=== PATIENT | female | born 1950 | race Caucasian/White ===

== ENCOUNTER 2018-07-06 10:53 | Outpatient (CLI) | payer MEDICARE, OTHER | END 2018-07-06 10:54 | disposition home or self-care (01) | LOC: RT 10:53 | PROVIDERS: ATTEND Orthopaedic Surgery | DX: Z01.810 Encounter for preprocedural cardiovascular examination (principal); R68.89 Other general symptoms and signs | CPT/HCPCS: 93005 ==

== ENCOUNTER 2022-07-10 13:02 | Emergency (ER) | payer MEDICARE, OTHER ==
[2022-07-10 13:11] VITALS: BP 157/89
--- NOTE | 2022-07-10 13:44 | XRAY Report ---
PROCEDURE: Wrist 4 View RT INDICATIONS: Trauma TECHNIQUE: 4 views of the wrist were acquired. COMPARISON: None FINDINGS: Bones: Acute mildly displaced comminuted distal radius fracture. Fracture planes involving the radioc arpal joint. No substantial angulation of the distal fracture fragments. Scaphoid view: No definite acute scaphoid fracture visualized. Soft tissues: No suspicious soft tissue calcifications. IMPRESSION: Acute comminuted distal radius fracture. Reviewed by: Balwinder Briones MD on 07/10/2022 1:43 PM PDT Approved by: Balwinder Briones MD on 07/10/2022 1:43 PM PDT Station ID: [id number]
--- NOTE | 2022-07-10 16:53 | ED Physician Documentation ---
PD HPI UPPER EXT INJURY - Stated complaint Stated Complaint: R WRIST INJ - Chief complaint Chief Complaint: Trauma Ext - History obtained from History obtained from: Patient - History of Present Illness Location: Right, Wrist Type of injury: Fall Where injury occurred: Home Timing - onset: Yesterday Timing - duration: Days (1) Timing - details: Abrupt onset, Still present Improved by: Rest, Ice, Immobilization Worsened by: Moving, Palpating Associated symptoms: Swelling. No: Weakness, Numbness Contributing factors: No: Anticoagulated, Prior ortho surgery Similar symptoms before: Diagnosis (ankle fracture) Recently seen: Not recently seen - Additonal information Additional information: Sabrina Rainey is a 72-year-old female with a history of hypertension who was walking in her yard when she tripped over a piece of metal falling forward onto her outstretched right hand. She did not otherwise injure herself in the fall and complains of pain and swelling to the right wrist that has lasted overnight. She was able to get comfortable to be able to sleep by holding her hand over her chest. She has broken her ankle previously and this took about 6 weeks to heal Review of Systems Constitutional: denies: Fever Ears: denies: Ear pain Nose: denies: Congestion Throat: denies: Sore throat Respiratory: denies: Cough GI: denies: Vomiting, Diarrhea : denies: Dysuria, Frequency Skin: denies: Rash Musculoskeletal: reports: Extremity pain, Joint pain, Joint swelling. denies: Neck pain, Back pain Neurologic: denies: Generalized weakness, Focal weakness, Numbness, Difficulty speaking PD PAST MEDICAL HISTORY - Allergies Allergies/Adverse Reactions: Allergies Allergy/AdvReac Type Severity Reaction Status Date / Time No Known Drug Allergies Allergy Verified 07/10/22 13:11 PD ED PE NORMAL - Vitals Vital signs reviewed: Yes (hypertensive ) - General General: Alert and oriented X 3, No acute distress, Well developed/nourished - HEENT HEENT: Atraumatic, PERRL, EOMI - Respiratory Respiratory: No respiratory distress, Other (no chest wall tenderness) - Back Back: No CVA TTP, No spinal TTP - Derm Derm: Normal color, Warm and dry, No rash - Extremities Extremities: Other (swelling to the right wrist concerning for distal radilus fracture. Decreased ROM and pain. distal n/v intact. no injury to shoulders/elbows back or LE. 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, No motor deficit, No sensory deficit, Normal speech Eye Opening: Spontaneous Motor: Obeys Commands Verbal: Oriented GCS Score: 15 - Psych Psych: Normal mood, Normal affect Results - Vitals Vitals: Vital Signs - 24 hr 07/10/22 13:08 Temperature 36.6 C Heart Rate 64 Respiratory 16 Rate Blood Pressure 157/89 H O2 Saturation 98 - Rads (name of study) right wrist Radiology: Prelim report reviewed (Impression: Acute comminuted distal radius fracture.), EMP read indepedently, See rad report Procedures - Splint (location) right wrist Splint applied by: Tech Type of splint: Fiberglass, Volar cock up Other: Patient tolerated well, No complications, Neurovascular intact, Good alignment, Sling provided PD MEDICAL DECISION MAKING - ED course Complexity details: reviewed old records, reviewed results, re-evaluated patient, considered differential, d/w patient ED course: 72-year-old female with a FOOSH has a comminuted distal radius fracture without angulation and she is placed into a volar wrist splint and we will have her follow-up with orthopedics in the coming week for casting. Departure - Departure Disposition: 01 Home, Self Care Clinical Impression: Distal radius fracture, right Qualifiers: Encounter type: initial encounter Fracture type: closed Fracture morphology: unspecified fracture morphology Qualified Code(s): S52.501A - Unspecified fracture of the lower end of right radius, initial encounter for closed fracture Condition: Stable Instructions: ED Fx Forearm Radius Ulna No Redu Requ Follow-Up: Migdalia Morales MD [Primary Care Provider] - Wagner Spears MD [Provider Admit Priv/Credential] - Comments: Tati, today it looks like you broke your wrist and we have placed you into a splint. Call the orthopedic office this week for a follow up visit for casting. Wear the splint until your followup with orthopedics. Expect to have a cast in place for about 6 weeks. With this fracture we expect normal healing with a good outcome.
== END 2022-07-10 17:33 | disposition home or self-care (01) ==
LOC: ED 13:02
DX: S52.501A Unspecified fracture of the lower end of right radius, initial encounter for closed fracture (principal); W01.0XXA Fall on same level from slipping, tripping and stumbling without subsequent striking against object, initial encounter; Y93.01 Activity, walking, marching and hiking; Y92.007 Garden or yard of unspecified non-institutional (private) residence as the place of occurrence of the external cause; I10 Essential (primary) hypertension
CPT/HCPCS: 29125; 99283; 99284

== ENCOUNTER 2022-07-29 08:00 | Outpatient (CLI) | payer MEDICARE, OTHER ==
--- NOTE | 2022-07-29 13:48 | XRAY Report ---
PROCEDURE: Wrist 3 View RT INDICATIONS: RIGHT WRIST FRACTURE TECHNIQUE: 3 views of the wrist were acquired. COMPARISON: 07/10/2022 FINDINGS: Bones: Healing impacted and comminuted distal radius fracture with extension through the articular fink rface. Slight central subluxation of the distal fracture fragment and the radiocarpal articulation on the lateral view. Distal radioulnar joint is grossly intact. Soft tissues: No suspicious soft tissue calcifications. IMPRESSION: 1. Slight volar subluxation of the distal fracture fragment and radiocarpal articulation compared to the radial diaphysis seen best on the lateral view. 2. No significant bridging callus seen. Reviewed by: Trinidad Myers MD on 07/29/2022 1:46 PM PDT Approved by: Trinidad Myers MD on 07/29/2022 1:46 PM PDT Station ID: [id number]
== END 2022-07-29 23:59 | disposition home or self-care (01) ==
LOC: DI.WOS 08:00
PROVIDERS: ATTEND Orthopaedic Surgery
DX: S52.501D Unspecified fracture of the lower end of right radius, subsequent encounter for closed fracture with routine healing (principal)

== ENCOUNTER 2022-08-20 14:28 | Outpatient (CLI) | payer MEDICARE, OTHER ==
--- NOTE | 2022-08-20 16:04 | XRAY Report ---
PROCEDURE: Wrist 3 View RT INDICATIONS: RIGHT WRIST FRACTURE TECHNIQUE: 3 views of the wrist were acquired. COMPARISON: Right wrist radiographs 07/29/2022 and 07/10/2022 FINDINGS: Bones: Comminuted intra-articular fracture of the distal radius is redemonstrated. The alignment does not appear significantly changed when compared to the exam from 07/28/2022, although mildly increase d radial and volar angulation is again noted when compared to the exam from 07/10/2022. Osseous resor ption along the fracture line is most likely related to mild progressive healing changes. Soft tissues: Soft tissue edema is seen surrounding the wrist. IMPRESSION: Comminuted intra-articular fracture of the distal radius with mild angulation does not appear signifi cant changed in alignment when compared to the radiographs from 07/29/2022, with probable mild progre ssive healing changes. Reviewed by: Balwinder Jones MD on 08/20/2022 4:03 PM PST Approved by: Balwinder Jones MD on 08/20/2022 4:03 PM PST Station ID: [id number]
== END 2022-08-20 14:29 | disposition home or self-care (01) ==
LOC: DI.WOS 14:28
PROVIDERS: ATTEND Orthopaedic Surgery
DX: S52.531D Colles' fracture of right radius, subsequent encounter for closed fracture with routine healing (principal)

== ENCOUNTER 2022-10-31 08:00 | Outpatient (CLI) | payer MEDICARE ==
--- NOTE | 2022-10-31 12:22 | XRAY Report ---
PROCEDURE: Wrist 3 View RT INDICATIONS: RIGHT WRIST FRACTURE TECHNIQUE: 3 views of the wrist were acquired. COMPARISON: X-ray rest 08/20/2022 FINDINGS: Bones: There is a persistent appearance of impacted, comminuted, intra-articular and ventrally displa nadiya radial metaphyseal fracture. Alignment is stable compared to prior exam. Fracture lucencies are l ess visible although incompletely resolved. Soft tissues: No suspicious soft tissue calcifications. IMPRESSION: Comminuted intra-articular radial metaphyseal fracture with stable alignment and mild interval healin g. Reviewed by: Adrianne Giraldo MD on 10/31/2022 12:21 PM PST Approved by: Adrianne Giraldo MD on 10/31/2022 12:21 PM PST Station ID: [id number]
== END 2022-10-31 15:55 | disposition home or self-care (01) ==
LOC: DI.WOS 08:00
PROVIDERS: ATTEND Orthopaedic Surgery
DX: S52.531D Colles' fracture of right radius, subsequent encounter for closed fracture with routine healing (principal)

== ENCOUNTER 2024-01-20 12:15 | Outpatient (CLI) | payer MEDICARE ==
--- NOTE | 2024-01-27 10:13 | Mammography Report ---
BILATERAL DIGITAL SCREENING MAMMOGRAM 3D/2D: 01/20/2024 CLINICAL: Routine screening. Comparison is made to exams dated: 11/29/2021 mammogram, 11/20/2018 mammogram, 09/08/2017 mammogram, mammogram, and 05/09/2014 mammogram - [facility]- [place]. There are scattered areas of fibroglandular density in both breasts (category b / 25%-50% glandular t issue). No significant masses, calcifications, or other findings are seen in either breast. There has been no significant interval change. IMPRESSION: NEGATIVE There is no mammographic evidence of malignancy. A 1 year screening mammogram is recommended. Based on the Tyrer Cuzick model (a risk assessment model) the patient's lifetime risk is 4.7% and her 10 year risk is 4.3%. According to the ACR, ACS, and NCCN guidelines, an annual breast MRI exam jasen g with mammogram is recommended if the patient's lifetime risk is 20% or greater. This exam was interpreted at Station ID: [id number]. NOTE: For mammograms, a report in lay terms will be sent to the patient. Approximately 15% of breast malignancies will not be visualized mammographically. In the management of a palpable breast mass, a negative mammogram must not discourage biopsy of a clinically suspicious lesion. Electronically Signed By: Jigar mansfield/adam:01/26/2024 10:01:16 letter sent: No_Letter ACR BI-RADS Category 1: Negative 3341F PARENCHYMAL PATTERN: (A) - The breast(s) demonstrate(s) scattered fibroglandular densities. BI-RADS CATEGORY: (1) - 1 RECOMMENDATION: (ANNUAL) - Recommend routine annual screening mammography. [id number] 1 year screening LATERALITY: (B)
== END 2024-01-20 12:16 | disposition home or self-care (01) ==
LOC: DI 12:15
DX: Z12.31 Encounter for screening mammogram for malignant neoplasm of breast (principal); R92.323 Mammographic fibroglandular density, bilateral breasts